=== PATIENT | female | born 1970 ===

== ENCOUNTER 2017-08-09 13:41 | Emergency (ER) | payer OTHER, SELFPAY ==
[2017-08-09 13:44] VITALS: BMI 35.9
[2017-08-09 13:45] VITALS: BP 129/72; PULSE 73; RESP 20; TEMP 98.2; O2SAT 96
--- NOTE | 2017-08-09 14:07 | ED PDOC ---
HPI: CCC, URI, Sore Throat Time Seen by Provider: 08/09/17 13:56 Chief Complaint (Nursing): ENT Problem Chief Complaint (Provider): right ear pain, sore throat History Per: Patient History/Exam Limitations: no limitations Onset/Duration Of Symptoms: Days (x 1 week) Current Symptoms Are (Timing): Still Present Location Of Pain: Ear(s), Throat Additional Complaint(s): Krissy Alcantar is a 47-year-old female who presents to the emergency department complaining of right ear pain with associated sore throat for 1 week. Theraflu has not helped her symptoms. She denies any associated fever or chills. Patient took Aleve yesterday which upset her stomach, so she did not take pain medication today. She is tolerating liquids and solids. PMD: [facility] Past Medical History Reviewed: Historical Data, Nursing Documentation, Vital Signs Vital Signs: Last Vital Signs Temp 98.2 F 08/09/17 13:44 Pulse 73 08/09/17 13:44 Resp 20 08/09/17 13:44 BP 129/72 08/09/17 13:44 Pulse Ox 96 08/09/17 14:13 - Medical History PMH: No Chronic Diseases - Surgical History Surgical History: No Surg Hx - Family History Family History: States: No Known Family Hx - Living Arrangements Living Arrangements: With Family - Social History Current smoker - smoking cessation education provided: No Alcohol: None Drugs: Denies - Home Medications Home Medications: Ambulatory Orders Medication Instructions Recorded Amoxicillin/Clavulanate Pota 1 tab PO BID #20 tab 05/20/14 [Augmentin 875 mg-125 mg] Ibuprofen 600 mg PO Q6 PRN #15 tab 05/20/14 Neomycin/Polymyxin/Hydrocortis 4 drop OT TID #1 bottle 05/20/14 [Cortisporin Otic Susp] Amoxicillin [Amoxil 500 mg Cap] 500 mg PO BID #14 cap 07/10/16 Amoxicillin/Clavulanate [Augmentin 1 tab PO BID #14 tab 08/09/17 875 MG-125 MG] - Allergies Allergies/Adverse Reactions: Allergies Allergy/AdvReac Type Severity Reaction Status Date / Time No Known Allergies Allergy Verified 07/10/16 11:53 Review of Systems ROS Statement: Except As Marked, All Systems Reviewed And Found Negative Constitutional: Negative for: Fever, Chills ENT: Positive for: Ear Pain (Right), Throat Pain Respiratory: Negative for: Cough Gastrointestinal: Negative for: Nausea, Vomiting Neurological: Negative for: Headache, Dizziness Physical Exam - Reviewed Nursing Documentation Reviewed: Yes Vital Signs Reviewed: Yes - Physical Exam Appears: Positive for: Well, Non-toxic, No Acute Distress Head Exam: Positive for: ATRAUMATIC, NORMAL INSPECTION, NORMOCEPHALIC Skin: Positive for: Normal Color. Negative for: Rash Eye Exam: Positive for: Normal appearance ENT: Positive for: TM Is/Are (normal bilaterally), Tonsillar Swelling (and erythema). Negative for: Tonsillar Exudate Neck: Positive for: Normal, Supple Cardiovascular/Chest: Positive for: Regular Rate, Rhythm Respiratory: Positive for: Normal Breath Sounds. Negative for: Wheezing, Respiratory Distress Extremity: Positive for: Normal ROM Neurologic/Psych: Positive for: Alert, Oriented - ECG O2 Sat by Pulse Oximetry: 96 (RA) Pulse Ox Interpretation: Normal Medical Decision Making Medical Decision Making: Time: 14:06 Clinical Impression: 47 year old female with pharyngitis and tonsillitis Plan: Patient is medically stable and will be discharged with Rx for Augmentin. Advised patient to take Tylenol for pain and follow up with the clinic in 2 days. Scribe Attestation: Documented by Trista Trammell, acting as a scribe for Ronna Campbell PA-C Provider Scribe Attestation: All medical record entries made by the Scribe were at my direction and personally dictated by me. I have reviewed the chart and agree that the record accurately reflects my personal performance of the history, physical exam, medical decision making, and the department course for this patient. I have also personally directed, reviewed, and agree with the discharge instructions and disposition. Disposition - Clinical Impression Clinical Impression: Tonsillitis, Pharyngitis - Patient ED Disposition Is Patient to be Admitted: No Counseled Patient/Family Regarding: Diagnosis, Need For Followup, Rx Given - Disposition Referrals: [facility] [place] [Outside] Disposition: Routine/Home Disposition Time: 14:05 Condition: STABLE Additional Instructions: Take tylenol for pain as needed Take antibiotics as directed Follow up with clinic in 2-3 days. Prescriptions: Amoxicillin/Clavulanate [Augmentin 875 MG-125 MG] 1 tab PO BID #14 tab Instructions: Pharyngitis (ED), Tonsillitis (ED) Forms: [employer] (Finnish) Print Language: SERBIAN
== END 2017-08-09 14:41 | disposition home or self-care (01) ==
LOC: H.ER 13:41
DX: J03.90 Acute tonsillitis, unspecified (principal); H92.01 Otalgia, right ear